=== PATIENT | female | born 1960 | race Caucasian/White ===

== ENCOUNTER 2018-10-18 13:22 | Outpatient (CLI) | payer OTHER ==
--- NOTE | 2018-10-18 15:04 | CT ---
LOW DOSE CT SCAN OF CHEST WITHOUT CONTRAST FOR LUNG CANCER SCREENING: Date: 10/18/18 HISTORY: Smoker for 30+ years. FINDINGS: There are a few tiny pulmonary nodules measuring up to 2.0 mm. There is scarring in the right lung ap ex. No pleural or pericardial effusions are seen. There are vascular calcifications without evidence of aneurysmal dilatation of the abdominal aorta. There are degenerative changes in the spine. IMPRESSION: Lung-RADS Category 2 - Benign. RECOMMENDATION: Continue annual screening with LDCT in 12 months. POS: [facility]
== END 2018-10-18 13:23 | disposition home or self-care (01) ==
LOC: CT 13:22
PROVIDERS: ATTEND Nurse Practitioner Family
DX: Z87.891 Personal history of nicotine dependence (principal)
CPT/HCPCS: G0297

== ENCOUNTER 2018-10-18 13:57 | Outpatient (CLI) | payer OTHER | END 2018-10-18 13:58 | disposition home or self-care (01) | LOC: BICMAMMO 13:57 | PROVIDERS: ATTEND Nurse Practitioner Family | DX: Z12.31 Encounter for screening mammogram for malignant neoplasm of breast (principal); Z80.3 Family history of malignant neoplasm of breast | CPT/HCPCS: 77063; 77067 ==

== ENCOUNTER 2021-11-04 13:00 | Outpatient (CLI) | payer BC ==
[~2021-11-04 13:00] MED LIST: Iopamidol-370 76% 500 ML 1 ML ONE
== END 2021-11-04 13:01 | disposition home or self-care (01) ==
LOC: BICCT 13:00
PROVIDERS: ATTEND Nurse Practitioner Family
DX: R05.3 Chronic cough (principal); K76.0 Fatty (change of) liver, not elsewhere classified; R91.1 Solitary pulmonary nodule
CPT/HCPCS: 71260; 82565

== ENCOUNTER 2022-03-31 12:33 | Outpatient (CLI) | payer BC | END 2022-03-31 12:34 | disposition home or self-care (01) | LOC: BICMAMMO 12:33 | PROVIDERS: ATTEND Nurse Practitioner Family | DX: Z12.31 Encounter for screening mammogram for malignant neoplasm of breast (principal) | CPT/HCPCS: 77063; 77067 ==

== ENCOUNTER 2022-03-31 12:54 | Outpatient (CLI) | payer BC | END 2022-03-31 12:55 | disposition home or self-care (01) | LOC: CT 12:54 | PROVIDERS: ATTEND Nurse Practitioner Family | DX: Z12.2 Encounter for screening for malignant neoplasm of respiratory organs (principal); J44.9 Chronic obstructive pulmonary disease, unspecified; R91.8 Other nonspecific abnormal finding of lung field; Z87.891 Personal history of nicotine dependence | CPT/HCPCS: 71271 ==

== ENCOUNTER 2022-05-10 12:26 | Outpatient (CLI) | payer BC | END 2022-05-10 12:27 | disposition home or self-care (01) | LOC: ULT 12:26 | PROVIDERS: ATTEND Nurse Practitioner Family | DX: M79.604 Pain in right leg (principal); J44.9 Chronic obstructive pulmonary disease, unspecified; R91.8 Other nonspecific abnormal finding of lung field; I10 Essential (primary) hypertension; E78.5 Hyperlipidemia, unspecified; Z87.891 Personal history of nicotine dependence | CPT/HCPCS: 93923 ==

== ENCOUNTER 2022-06-21 09:18 | Outpatient (CLI) | payer BC | END 2022-06-21 09:19 | disposition home or self-care (01) | LOC: MRI 09:18 | PROVIDERS: ATTEND Orthopaedic Surgery | DX: M47.26 Other spondylosis with radiculopathy, lumbar region (principal); M48.061 Spinal stenosis, lumbar region without neurogenic claudication; M51.16 Intervertebral disc disorders with radiculopathy, lumbar region | CPT/HCPCS: 72148 ==

== ENCOUNTER 2023-04-13 15:23 | Outpatient (CLI) | payer BC | END 2023-04-13 15:24 | disposition home or self-care (01) | LOC: BICMAMMO 15:23 | PROVIDERS: ATTEND Nurse Practitioner Family | DX: Z12.31 Encounter for screening mammogram for malignant neoplasm of breast (principal); Z12.2 Encounter for screening for malignant neoplasm of respiratory organs; Z87.891 Personal history of nicotine dependence | CPT/HCPCS: 71271; 77063; 77067 ==